=== PATIENT | male | born 1990 | race Caucasian/White ===

== ENCOUNTER 2021-02-22 12:48 | Emergency (ER) | payer MEDICAID ==
[~2021-02-22] VITALS: Ht 180.3 cm; Wt 73.0 kg
[2021-02-22 14:29] LABS: CHLORIDE 107 mEq/L (98-107)
[2021-02-22 14:37] LABS: BASOPHILS % 0.2 % (0.0-2.0); EOSINOPHILS % 0.6 % (0.0-5.0); HEMATOCRIT. 39.5 % (42.0-52.0); LYMPHOCYTES % 16.3 % (20.0-50.0); MEAN CORPUSCULAR HEMOGLOBIN 28.6 pg (28.0-32.0); MEAN CORPUSCULAR VOLUME 86.8 fL (80.0-94.0); MEAN PLATELET VOLUME 7.7 fl (7.4-10.4); MONOCYTES % 7.4 % (2.0-8.0); NEUTROPHILS % 75.5 % (40.0-76.0); PLATELET 168 x1000/uL (130-400); RED BLOOD CELL COUNT 4.55 mill/uL (4.7-6.1); RED CELL DISTRIBUTION WIDTH 13.2 % (11.6-14.6)
[2021-02-22] MEDS ORDERED: ONDANSETRON 4MG ODT PO ONE (15:15)
[2021-02-22] MEDS ORDERED: ONDA4TAB11 PO (15:22)
[2021-02-22 19:08] VITALS: BP 101/72
== END 2021-02-22 19:55 | disposition home or self-care (01) ==
LOC: ER 12:48
DX: R11.2 Nausea with vomiting, unspecified (principal); F17.200 Nicotine dependence, unspecified, uncomplicated; F11.10 Opioid abuse, uncomplicated; Z72.820 Sleep deprivation; Z88.0 Allergy status to penicillin; Z98.890 Other specified postprocedural states
CPT/HCPCS: 36415; 80053; 83690; 85025; 99283; Q0162